=== PATIENT | male | born 1990 | race Caucasian/White ===

== ENCOUNTER 2017-10-08 10:06 | Inpatient (IN) | payer MEDICAID, OTHER ==
[~2017-10-08] VITALS: Ht 168.9 cm; Wt 89.0 kg
[~2017-10-08 10:06] MED LIST: CeFAZolin 2 GM/DEXTROSE 50 ML IV ONE; RINGERS SOLUTION,LACTATED 1,000 ML IV ONE
[2017-10-08] MEDS ORDERED: CeFAZolin 2 GM/DEXTROSE 50 ML IV ONE (10:43)
[2017-10-08 11:00] LABS: BASOPHILS % (AUTO) 0.5 % (0.0-2.0); EOSINOPHILS % (AUTO) 3.6 % (1.0-6.0); HEMOGLOBIN 14.8 g/dL (13.5-17.5); LYMPHOCYTES # (AUTO) 1.6 K/uL (1.0-4.8); LYMPHOCYTES % (AUTO) 32.8 % (22.0-44.0); MEAN CORPUSCULAR HEMOGLOBIN 22.2 pg (26.0-34.0); MEAN CORPUSCULAR HGB CONC 32.2 G/dL (31.0-37.0); MEAN CORPUSCULAR VOLUME 69 fL (80-100); MONOCYTES # (AUTO) 0.4 K/uL (0.1-1.0); MONOCYTES % (AUTO) 8.3 % (2.0-9.0); NEUTROPHILS # (AUTO) 2.7 K/uL (1.8-7.7); NEUTROPHILS % (AUTO) 54.8 % (40.0-70.0); PLATELET COUNT (AUTO) 219 K/uL (150-450); RED BLOOD CELL COUNT(AUTO) 6.69 MIL/uL (4.50-5.90); RED CELL DISTRIBUTION WIDTH 14.6 % (11.5-14.5)
[2017-10-08] MEDS ORDERED: RINGERS SOLUTION,LACTATED 1,000 ML IV ONE ×2 (11:00→13:40)
[2017-10-08 11:11] LABS: ANION GAP 10 mmol/L (8-16); CALCIUM, TOTAL 9.2 mg/dL (8.8-10.5); CARBON DIOXIDE 28 mmol/L (22-29); CHLORIDE 101 mmol/L (98-107); GLOMERULAR FILTR. RATE CALC > 60 mL/min (>60); GLUCOSE,RANDOM 88 mg/dL (70-110); POTASSIUM 3.8 mmol/L (3.5-5.1); SODIUM SERUM 139 mmol/L (136-145); UREA NITROGEN, BLOOD 11 mg/dL (7-18)
[2017-10-08] MEDS ORDERED: GUM MASTIC/STORAX/MSAL/ALCOHOL LIQUID 0.67 ML VIAL TP ONE (11:41)
[2017-10-08] MEDS ORDERED: SODIUM CL IRRIG SOLN BAG 0 ML IRRIG ONE (11:42)
[2017-10-08] MEDS ORDERED: ACETAMINOPHEN 1000 MG/ISO-OSM 100 ML IV ONE (11:58)
[2017-10-08] MEDS ORDERED: EPINEPHrine 1:1,000 [1 MG/ML] AMP ONE (12:02)
[2017-10-08] MEDS ORDERED: ROPIVACAINE HCL 0.2% 100 ML ED ONE (12:07)
[2017-10-08] MEDS ORDERED: BUPIVACAINE HCL/PF 0.5% 30 ML VIAL ONE (12:54)
[2017-10-08] MEDS ORDERED: LIDOCAINE HCL 1%/EPI 1:200,000/PF 30 ML VIAL ONE (12:54)
[2017-10-08] MEDS ORDERED: FentaNYL CITRATE-PF 100 MCG/2 ML VIAL IV ONE (13:11)
[2017-10-08] MEDS ORDERED: MIDAZOLAM HCL 2 MG/2 ML VIAL IVP ONE (13:11)
[2017-10-08] MEDS ORDERED: MEPERIDINE-PF 25 MG/ML SYRINGE IVP PRN (16:00)
[2017-10-08] MEDS ORDERED: FentaNYL CITRATE-PF 100 MCG/2 ML VIAL IVP PRN (16:00)
[2017-10-08] MEDS ORDERED: HYDROmorphone 2 MG/ML SYRINGE IVP PRN (16:00)
[2017-10-08] MEDS ORDERED: MEPERIDINE-PF 25 MG/ML SYRINGE ONE (16:32)
[2017-10-08] MEDS ORDERED: FentaNYL CITRATE-PF 100 MCG/2 ML VIAL ONE (16:40)
[2017-10-08] MEDS ORDERED: MORPHINE SULFATE 2 MG/ML SYRINGE IVP PRN (17:00)
[2017-10-08] MEDS ORDERED: OxyCODONE HCL/ACETAMINOPHEN 5-325 MG TABLET PO PRN (17:00)
[2017-10-08] MEDS ORDERED: ONDANSETRON HCL 4 MG/2 ML VIAL IM PRN (17:00)
[2017-10-08 17:30] VITALS: BP 122/76
[2017-10-08] MEDS ORDERED: SODIUM CHLORIDE 0.9% 250 ML IV ONE (18:36)
[2017-10-08] MEDS: CYCLOBENZAPRINE HCL 10 MG TABLET PO SCH (18:37)
[2017-10-08] MEDS: CeFAZolin SODIUM 500 MG in DEXTROSE 5%-WATER 50 ML IV SCH (18:38)
[2017-10-08 19:53] VITALS: BP 124/82
[2017-10-08] MEDS ORDERED: OXYGEN THERAPY IH SCH (20:00)
[2017-10-08] MEDS: OxyCODONE HCL/ACETAMINOPHEN 5-325 MG TABLET PO PRN (20:37)
[2017-10-08 23:21] VITALS: BP 126/72
[2017-10-09] MEDS: CYCLOBENZAPRINE HCL 10 MG TABLET PO SCH ×2 (01:38→07:58)
[2017-10-09] MEDS: CeFAZolin SODIUM 500 MG in DEXTROSE 5%-WATER 50 ML IV SCH (01:38)
[2017-10-09] MEDS: OxyCODONE HCL/ACETAMINOPHEN 5-325 MG TABLET PO PRN ×2 (02:42→07:58)
[2017-10-09 04:26] VITALS: BP 123/51
[2017-10-09 08:02] VITALS: BP 122/97
[2017-10-09] MEDS ORDERED: OxyCODONE HCL/ACETAMINOPHEN 10-325 MG TABLET PO PRN (09:30)
[2017-10-09] MEDS ORDERED: OxyCODONE HCL/ACETAMINOPHEN 10-325 MG TABLET PO ONE (09:30)
[2017-10-09 11:14] VITALS: BP 135/84
[2017-10-09 11:15] VITALS: BP 135/84
[2017-10-09] MEDS ORDERED: OxyCODONE HCL 5 MG IR TABLET PO ONE (11:30)
[2017-10-09] MEDS ORDERED: OXYC5 PO (12:42)
== END 2017-10-09 13:12 | disposition home or self-care (01) | DRG 502 ==
LOC: 4E 10:06 → OBSVTOIN 10:07
PROVIDERS: ADMIT Orthopaedic Surgery; ATTEND Orthopaedic Surgery
PROC: 0LBP0ZZ Excision of Left Lower Leg Tendon, Open Approach (ICD-10-PCS; 2017-10-08)
PROC: 0LBN0ZZ Excision of Right Lower Leg Tendon, Open Approach (ICD-10-PCS; 2017-10-08)
PROC: 0KU Muscles, Supplement (ICD-10-PCS; principal; 2017-10-08 13:13)
DX: S29.011A Strain of muscle and tendon of front wall of thorax, initial encounter (principal); I77.89 Other specified disorders of arteries and arterioles
CPT/HCPCS: 87081; 97110; 97161; 97166; J0131; J0171; J0690; J2175; J2250; J2270; J2795; J3010; J3490; J7050; J7060; J7120